=== PATIENT | female | born 1950 | race Two or more races ===

== ENCOUNTER 2024-06-21 13:58 | Emergency (ER) | payer OTHER ==
[~2024-06-21] VITALS: Ht 167.6 cm; Wt 64.4 kg
[2024-06-21] MEDS ORDERED: JANUMET 50-1,01 EACH PO (14:14)
[2024-06-21] MEDS ORDERED: 0.9 % SODIUM CHLORIDE 500 ML IV STA (15:31)
[2024-06-21 16:04] LABS: HEMATOCRIT 38.7 % (36.0-45.00); HEMOGLOBIN 13.3 g/dL (12.0-15.00); MEAN CELL VOLUME 92.2 fL (80.00-100.00); MEAN CORPUSCULAR HEMOGLOBIN 31.6 pg (27.00-32.0); MEAN CORPUSCULAR HGB CONC 34.3 g/dl (32.0-36.0); PLATELET COUNT 162 K/uL (150-450); RED BLOOD COUNT 4.19 M/uL (4.00-6.00); RED CELL DISTRIBUTION WIDTH 13.9 % (11.5-14.5)
[2024-06-21 16:27] LABS: CALCIUM 9.5 mg/dL (8.5-10.1); CREATININE SERUM 0.76 mg/dL (0.55-1.02); GFR 74.39; POTASSIUM 4.07 mEq/L (3.5-5.1)
[2024-06-21 16:40] LABS: URINE APPEARANCE Clear; URINE BILIRRUBIN Negative (NEGATIVE); URINE BLOOD Moderate; URINE COLOR Yellow; URINE GLUCOSE Negative (NEGATIVE); URINE LEUKOCYTE Trace; URINE NITRATE Negative; URINE PROTEIN Negative (NEGATIVE); URINE UROBILINOGEN 0.2 E.U./dl
[2024-06-21 16:41] LABS: URINE BACTERIA 1123.5 uL (0.0-1933); URINE EPITHELIAL CELLS 17.2 uL (0.0-38.8); URINE RBC 7.7 uL (0.0-20.8); URINE WBC 13.4 uL (0.0-23.2)
== END 2024-06-21 17:17 | disposition home or self-care (01) ==
LOC: ER 13:59
PROVIDERS: General Practice
DX: R42 Dizziness and giddiness (principal); T67.01XA Heatstroke and sunstroke, initial encounter; Z88.0 Allergy status to penicillin; Z88.1 Allergy status to other antibiotic agents
CPT/HCPCS: 36415; 96365; 96366; 99282; J7042

== ENCOUNTER 2025-09-20 14:14 | Inpatient (IN) | payer OTHER ==
[~2025-09-20] VITALS: Ht 162.6 cm; Wt 57.2 kg
[~2025-09-20 14:14] MED LIST: JANUMET 50-1,01 EACH PO
[2025-09-20] MEDS ORDERED: LYRICA50 MG PO (15:16)
[2025-09-20] MEDS ORDERED: MEMANTINE HCL5 MG PO (15:17)
[2025-09-20] MEDS ORDERED: LIPITOR20 MG PO (15:17)
[2025-09-20] MEDS ORDERED: ADULT LOW DOSE81 M1 PO (15:17)
[2025-09-20] MEDS ORDERED: FAMOtidine 10 MG/ML (4ML VIAL) IV PUSH ONE (15:45)
[2025-09-20] MEDS ORDERED: 0.9 % SODIUM CHLORIDE 1,000 ML IV SCH ×2 (15:45→18:45)
[2025-09-20] MEDS ORDERED: ACETAMINOPHEN 500 MG GEL..CAP PO ONE (15:45)
[2025-09-20 16:08] LABS: BASO % 0.5 % (0.1-1.2); EOS # 0.01 (0.04-0.54); EOS % 0.1 % (0.7-7.0); LYMPH # 1.02 (1.18-3.74); LYMPH % 6.4 % (19.3-53.1); MEAN PLATELET VOLUME 12.10 fl (9.4-12.4); MONO # 0.75 (0.24-0.82); MONO % 4.7 % (4.7-12.5); NEUT # 13.97 (1.56-6.13); NEUT % 87.0 % (34.0-71.1); RED CELL DISTRIBUTION WIDTH 14.5 % (11.6-14.4)
[2025-09-20 16:46] LABS: INR 1.01
[2025-09-20 16:53] LABS: ALT/SGPT 31.0 U/L (12-78); AST/SGOT 28.0 U/L (15-37); BILIRUBIN TOTAL 0.35 mg/dL (0.3-1.2); BUN CREA RATIO 12.0 (7.0-25.0); CREATININE SERUM 1.21 mg/dL (0.55-1.02); GFR 43.38; GLOBULINA 3.6 G/DL (2.4-3.5); GLUCOSE FASTING 128.0 mg/dL (65-100); OSMOLALITY SERUM 289.0 MOSM/KG (275-295)
[2025-09-20 17:23] LABS: URINE APPEARANCE Cloudy; URINE BILIRRUBIN Negative (NEGATIVE); URINE BLOOD Negative; URINE COLOR Dark Yellow; URINE GLUCOSE Negative (NEGATIVE); URINE KETONE Trace (NEGATIVE); URINE LEUKOCYTE Trace; URINE NITRATE Negative; URINE UROBILINOGEN 0.2 E.U./dl
[2025-09-20 17:27] LABS: URINE BACTERIA 3831.1 uL (0.0-1933); URINE CAST 14.81 uL (0.0-1.40); URINE EPITHELIAL CELLS 40.2 uL (0.0-38.8); URINE RBC 49.2 uL (0.0-20.8); URINE WBC 36.4 uL (0.0-23.2)
[2025-09-20 17:48] LABS: URINE PROTEIN 100 (NEGATIVE)
[2025-09-20] MEDS ORDERED: SODIUM BICARBONATE 50 MEQ in SODIUM CHLORIDE 0.45 % 1,000 ML IV ONE (18:45)
[2025-09-20] MEDS ORDERED: ATORVASTATIN CALCIUM 40 MG TABLET PO SCH (20:11)
[2025-09-20] MEDS ORDERED: ONDANSETRON HCL 4 MG in 0.9 % SODIUM CHLORIDE 50 ML IV PRN (22:30)
[2025-09-20] MEDS ORDERED: DEXTROSE 50 % IN WATER 0.5 G/ML DISP.SYRIN IV PRN (22:30)
[2025-09-20] MEDS ORDERED: INSULIN LISPRO 1,000 UNIT/10 ML UNITS SUBCUTANEO PRN (22:30)
[2025-09-20] MEDS ORDERED: hydrALAZINE HCL 20 MG VIAL IV PRN (22:30)
[2025-09-20] MEDS ORDERED: ACETAMINOPHEN 325 MG TABLET PO PRN (22:30)
[2025-09-21 01:34] VITALS: BP 150/85; O2SAT 98
[2025-09-21 08:22] LABS: BUN CREA RATIO 13.0 (7.0-25.0); CHOL HDL RATIO 2.0 (0-5.0); CREATININE SERUM 1.36 mg/dL (0.55-1.02); GFR 37.9; GLUCOSE FASTING 78.0 mg/dL (65-100); HDL 103.0 mg/dl (40-60); LDL 90.0 mg/dl (0-130); OSMOLALITY SERUM 287.0 MOSM/KG (275-295); TSH 1.18 uIU/mL (0.358-3.74); VLDL 10.0 (0-39)
[2025-09-21] MEDS ORDERED: FAMOTIDINE/PF 20 MG/2 ML VIAL IV SCH (09:00)
[2025-09-21] MEDS ORDERED: ASPIRIN 81 MG TAB.CHEW PO SCH (09:00)
[2025-09-21] MEDS ORDERED: MEMANTINE HCL 5 MG TABLET PO NR (10:15)
[2025-09-21 10:23] VITALS: BP 155/69; BP 180/60; O2SAT 97
[2025-09-21 16:06] LABS: BASO % 0.7 % (0.1-1.2); EOS # 0.15 (0.04-0.54); EOS % 1.7 % (0.7-7.0); LYMPH # 1.67 (1.18-3.74); LYMPH % 19.3 % (19.3-53.1); MEAN PLATELET VOLUME 12.10 fl (9.4-12.4); MONO # 0.77 (0.24-0.82); MONO % 8.9 % (4.7-12.5); NEUT # 5.98 (1.56-6.13); NEUT % 69.3 % (34.0-71.1); RED CELL DISTRIBUTION WIDTH 14.4 % (11.6-14.4)
[2025-09-21] MEDS ORDERED: MEMANTINE HCL 5 MG TABLET PO SCH (17:00)
[2025-09-21 22:39] VITALS: BP 160/66
[2025-09-22 01:26] VITALS: BP 160/51; O2SAT 97
[2025-09-22] MEDS ORDERED: AMLODIPINE BESYLATE 10 MG TABLET PO SCH (09:00)
[2025-09-22] MEDS ORDERED: LORazepam 2 MG/ML VIAL IV NR (09:00)
[2025-09-22] MEDS ORDERED: ENOXAPARIN SODIUM 40 MG/0.4 ML SYRINGE SUBCUTANEO SCH (09:00)
[2025-09-22 10:04] VITALS: BP 162/50; O2SAT 96
[2025-09-22 18:10] VITALS: BP 147/61; O2SAT 97
[2025-09-23 03:29] VITALS: BP 147/43; O2SAT 97
[2025-09-23 06:41] LABS: ALT/SGPT 32.0 U/L (12-78); AST/SGOT 48.0 U/L (15-37); BILIRUBIN TOTAL 0.61 mg/dL (0.3-1.2); BUN CREA RATIO 28.0 (7.0-25.0); CREATININE SERUM 0.89 mg/dL (0.55-1.02); GFR 61.83; GLOBULINA 3.3 G/DL (2.4-3.5); GLUCOSE FASTING 99.0 mg/dL (65-100); OSMOLALITY SERUM 293.0 MOSM/KG (275-295)
[2025-09-23 08:47] VITALS: BP 148/60; O2SAT 97
[2025-09-23 11:03] LABS: BASO % 0.6 % (0.1-1.2); EOS # 0.09 (0.04-0.54); EOS % 1.0 % (0.7-7.0); LYMPH # 1.43 (1.18-3.74); LYMPH % 15.4 % (19.3-53.1); MEAN PLATELET VOLUME 11.70 fl (9.4-12.4); MONO # 0.74 (0.24-0.82); MONO % 8.0 % (4.7-12.5); NEUT # 6.96 (1.56-6.13); NEUT % 74.9 % (34.0-71.1); RED CELL DISTRIBUTION WIDTH 14.3 % (11.6-14.4)
[2025-09-23 17:16] VITALS: BP 153/64; O2SAT 97
[2025-09-24 02:49] VITALS: BP 139/56; O2SAT 98
[2025-09-24 09:06] VITALS: BP 146/52; O2SAT 96
[2025-09-24 18:07] VITALS: BP 123/56
[2025-09-25 02:22] VITALS: BP 140/55; O2SAT 97
[2025-09-25 10:23] VITALS: BP 129/61; O2SAT 98
[2025-09-25] MEDS ORDERED: LIPITOR40 M1 PO (16:19)
[2025-09-25] MEDS ORDERED: AMLODIPINE BESY10 MG PO (16:19)
[2025-09-25] MEDS ORDERED: MEMANTINE HCL5 MG PO (16:20)
[2025-09-25] MEDS ORDERED: ADULT ASPIRIN81 MG PO (16:20)
[2025-09-25] MEDS ORDERED: JANUMET 50-1,01 EACH PO (16:21)
== END 2025-09-25 16:29 | disposition home or self-care (01) | DRG 69 ==
LOC: ER 14:14 → MEDJ 22:30
PROVIDERS: General Practice; ADMIT Internal Medicine; ATTEND Internal Medicine
PROC: BW28ZZZ Computerized Tomography (CT Scan) of Head (ICD-10-PCS; principal; 2025-09-20)
PROC: B030ZZZ Magnetic Resonance Imaging (MRI) of Brain (ICD-10-PCS; 2025-09-20)
PROC: B345ZZZ Ultrasonography of Bilateral Common Carotid Arteries (ICD-10-PCS; 2025-09-20)
PROC: B246ZZZ Ultrasonography of Right and Left Heart (ICD-10-PCS; 2025-09-21)
PROC: 4A12X4Z Monitoring of Cardiac Electrical Activity, External Approach (ICD-10-PCS; 2025-09-21)
DX: G45.9 Transient cerebral ischemic attack, unspecified (principal); R41.0 Disorientation, unspecified; R01.1 Cardiac murmur, unspecified; F01.50 Vascular dementia, unspecified severity, without behavioral disturbance, psychotic disturbance, mood disturbance, and anxiety; I10 Essential (primary) hypertension; E11.9 Type 2 diabetes mellitus without complications; Z79.4 Long term (current) use of insulin
CPT/HCPCS: 70551